=== PATIENT | female | born 1985 | race Caucasian/White ===

== ENCOUNTER 2018-01-28 14:48 | Emergency (ER) | payer OTHER ==
[2018-01-28] MEDS ORDERED: NS 0.9% 1000 ML* 2,000 ML IV ONE (15:06)
--- NOTE | 2018-01-28 16:05 | RAD ---
HISTORY: Vaginal bleeding in a female. The last menstrual period is unknown. COMPARISONS: None TECHNIQUE: Multiple transverse and longitudinal ultrasound images were obtained of the pelvis using grayscale, color flow, spectral and M-mode sonographic imaging. FINDINGS: UTERUS: The uterus is normal in shape, size, contour, and echotexture. GESTATION: There is a single live intrauterine gestation. The crown-rump length measures 5.2 cm yielding a gestational age of 12 weeks. cardiac motion is detected at a rate of 169 beats per minute. There is no identification of placental abruption. CUL-DE-SAC: There is no free fluid within the cul-de-sac. RIGHT OVARY: The right ovary measures 3.4 x 2.0 x 3.3 cm. LEFT OVARY: The left ovary measures 2.5 x 1.5 x 2.8 cm. IMPRESSION: Single live intrauterine gestation with a crown-rump length yielding a gestational age of 12 weeks.
[2018-01-28 16:39] LABS: Urine Appearance Clear; Urine Blood Negative (Negative); Urine Color Straw; Urine Ketones Negative (Negative); Urine Protein Negative (Negative); Urine Specific Gravity 1.004 (1.010-1.030); Urine Urobilinogen Negative (Negative)
[2018-01-28 16:57] LABS: ABS Basophils 0 10^3/ul (0-0.2); ABS Eosinophils 0 10^3/ul (0-0.6); ABS Lymphocytes 2.1 10^3/ul (1.0-4.8); ABS Monocytes 0.6 10^3/ul (0-0.8); ABS Neutrophils 8.1 10^3/ul (1.5-7.7); ABS Nucleated RBC 0 10^3/ul; Eosinophil % 0.4 % (0-6); Hematocrit 39 % (35-47); Hemoglobin 13.7 g/dl (12.0-16.0); Mean Corpuscular HGB Conc 35 g/dl (31-36); Mean Corpuscular Hemoglobin 31 pg (27-31); Mean Corpuscular Volume 88 fL (80-97); Mean Platelet Volume 9 um3 (7.4-10.4); Nucleated Red Blood Cells % 0; Platelet Count 295 10^3/ul (150-450); Red Blood Count 4.39 10^6/ul (4.0-5.4); Red Cell Distribution Width 13 % (10.5-15); White Blood Count 10.9 10^3/ul (3.5-10.8)
[2018-01-28 17:15] LABS: EGFR Non-African American 125.5 (>60)
[2018-01-28 18:58] VITALS: BP 111/68
--- NOTE | 2018-01-30 12:28 | ED ---
Ramez Castellanos Angela, scribed for Baudilio Daniels MD on 01/28/18 at 1507 . GI/ HPI - HPI Summary HPI Summary: This pt is a 32 y/o female, currently between 9 to 12 weeks , presenting to [facility] c/o dysuria since today. Pt reports she has had burning with urination today and states it feels "like pushing on needles." She additionally notes urinary urgency and nausea. Pt reports her urine was tinted red, she believes it's from the ureter. She denies abd cramping, vaginal discharge, vaginal bleeding. She reports she has frequent UTIs. Pt has an upcoming OBGyn ultrasound in 2 days. - History of Current Complaint Chief Complaint: EDUrogenitalProblems Time Seen by Provider: 01/28/18 14:58 Stated Complaint: POSSIABLE UTI Hx Obtained From: Patient Hx Last Menstrual Period: currently Onset/Duration: Started Hours Ago, Still Present Timing: Lasting Hours Current Severity: Severe Pain Intensity: 0 - no pain per pt Pain Characteristics: Burning - with urination Associated Signs and Symptoms: Positive: Nausea, Dysuria, Other: - urinary urgency. Negative: Vomiting Additional Signs & Symptoms: Negative: Vaginal Bleeding, Vaginal Discharge Aggravating Factor(s): Urination Alleviating Factor(s): Nothing - Allergy/Home Medications Allergies/Adverse Reactions: Allergies Allergy/AdvReac Type Severity Reaction Status Date / Time MS Penicillins [Penicillins] Allergy Severe Difficulty Verified 07/14/14 17:06 Breathing MS Latex [Latex] Allergy Mild Blisters Verified 07/14/14 17:06 PMH/Surg Hx/FS Hx/Imm Hx Endocrine/Hematology History: Reports: Hx Diabetes - GESTATIONAL DIABETES Denies: Hx Sickle Cell Disease Cardiovascular History: Denies: Other Cardiovascular Problems/Disorders Respiratory History: Reports: Hx Asthma GI History: Denies: Other GI Disorders History: Reports: Other Problems/Disorders - UTIs Musculoskeletal History: Denies: Hx Arthritis, Hx Tendonitis, Other Musculoskeletal History Sensory History: Reports: Hx Contacts or Glasses - GLASSES Denies: Hx Hearing Aid Opthamlomology History: Reports: Hx Contacts or Glasses - GLASSES Neurological History: Reports: Hx Migraine - IN PAST Psychiatric History: Reports: Hx Anxiety - WAS ON LEXAPRO BEFORE - Surgical History Surgery Procedure, Year, and Place: , 2006, [facility], [id number] Hx Anesthesia Reactions: No - PATIENT HAD SOME ONE SIDED PARLYSIS FOR SHORT TIME Infectious Disease History: No Infectious Disease History: Denies: Traveled Outside the [place] in Last 30 Days - Family History Known Family History: Positive: Hypertension - Social History Alcohol Use: None Substance Use Type: Reports: None Smoking Status (MU): Never Smoked Tobacco Have You Smoked in the Last Year: No Review of Systems Negative: Fever, Chills ENT: Negative Cardiovascular: Negative Respiratory: Negative Positive: Nausea. Negative: Abdominal Pain Positive: burning, dysuria, urgency. Negative: discharge Skin: Negative Neurological: Negative All Other Systems Reviewed And Are Negative: Yes Physical Exam - Summary Physical Exam Summary: VITAL SIGNS: Reviewed. GENERAL: Patient is a well-developed and nourished female who is lying comfortable in the stretcher. Patient is not in any acute respiratory distress. HEAD AND FACE: No signs of trauma. No ecchymosis, hematomas or skull depressions. No sinus tenderness. EYES: PERRLA, EOMI x 2, No injected conjunctiva, no nystagmus. EARS: Hearing grossly intact. Ear canals and tympanic membranes are within normal limits. MOUTH: Oropharynx within normal limits. NECK: Supple, trachea is midline, no adenopathy, no JVD, no carotid bruit, no c- spine tenderness, neck with full ROM. CHEST: Symmetric, no tenderness at palpation LUNGS: Clear to auscultation bilaterally. No wheezing or crackles. CVS: Regular rate and rhythm, S1 and S2 present, no murmurs or gallops appreciated. ABDOMEN: Soft, non-tender. No signs of distention. No rebound no guarding, and no masses palpated. Bowel sounds are normal. EXTREMITIES: FROM in all major joints, no edema, no cyanosis or clubbing. NEURO: Alert and oriented x 3. No acute neurological deficits. Speech is normal and follows commands. SKIN: Dry and warm Triage Information Reviewed: Yes Vital Signs On Initial Exam: Initial Vitals Temp Pulse Resp BP Pulse Ox 98.8 F 103 18 148/81 99 01/28/18 14:50 01/28/18 14:50 01/28/18 14:50 01/28/18 14:50 01/28/18 14:50 Vital Signs Reviewed: Yes Diagnostics - Vital Signs Vital Signs Temp Pulse Resp BP Pulse Ox 01/28/18 14:50 98.8 F 103 18 148/81 99 - Laboratory Result Diagrams: 01/28/18 15:30 01/28/18 15:30 Lab Statement: Any lab studies that have been ordered have been reviewed, and results considered in the medical decision making process. - Ultrasound No standard instances Ultrasound Interpretation: Positive (See Comments) - Transvaginal US IMPRESSION : Single live intrauterine gestation with a crown-rump length yielding a gestational age of [address] Daniels has reviewed this radiology report. Ultrasound Interpretation Completed By: Radiologist Re-Evaluation - Re-Evaluation First Eval Re-Evaluation Time: 17:42 Comment: I reviewed the lab results with the pt. GIGU Course/Dx - Course Assessment/Plan: This pt is a 32 y/o female, currently between 9 to 12 weeks , presenting to [facility] c/o dysuria since today. Pt reports she has had burning with urination today and states it feels "like pushing on needles." She additionally notes urinary urgency and nausea. Pt reports her urine was tinted red, she believes it's from the ureter. She denies abd cramping, vaginal discharge, vaginal bleeding. She reports she has frequent UTIs. Test results without any significant abnormalities except for WBC of 10.9, glucose of 111. Urinalysis is negative for UTI. Transvaginal ultrasound shows single live intrauterine gestation with a crown-rump length yielding a gestational age of 12 weeks. In the ED course the pt was given IV fluids, she declined any antiemetics. I discussed pt care with Dr. Marvin, Jacquard Fixer, who reports the pt can be discharged home and follow up with [facility]. Therefore pt will be discharged to home with follow up from Jacquard Fixer and PCP. She is instructed to return to the ED for any worsening or new symptoms. Pt is hemodynamically stable, alert and oriented x3. - Diagnoses Provider Diagnoses: Dysuria - Physician Notifications Discussed Care Of Patient With: Steve Marvin Time Discussed With Above Provider: 17:42 Instructed by Provider To: Other - I discussed pt care with Dr. Marvin, Jacquard Fixer, who reports the pt can be discharged and follow up with him in his office. Discharge - Discharge Plan Condition: Stable Disposition: HOME Patient Education Materials: Dysuria (ED) Referrals: Ramona Becker MD [Primary Care Provider] - Steve Marvin MD [Medical Doctor] - 2 Days (, 01/30/18.) Additional Instructions: Please follow up with Dr. Marvin, Jacquard Fixer, on , 01/30/18. RETURN TO THE ED FOR ANY WORSENING SYMPTOMS. The documentation as recorded by the Ramez garcia Angela accurately reflects the service I personally performed and the decisions made by , Baudilio Daniels MD.
== END 2018-01-28 18:58 | disposition home or self-care (01) ==
LOC: ED 14:48
DX: R30.0 Dysuria (principal); R11.10 Vomiting, unspecified
CPT/HCPCS: 36415; 76817; 80053; 81003; 83605; 84702; 85025; 86850; 86900; 86901; 87086; 99283

== ENCOUNTER 2018-08-06 05:59 | Inpatient (IN) | payer OTHER ==
[2018-08-06] MEDS ORDERED: Sodium Citrate/Citric Acid* 15 ML UDC ONE (07:40)
[2018-08-06] MEDS ORDERED: Bupivacaine-MPF SPINAL* 7.5 MG/ML - 2ML AMP ONE (07:47)
[2018-08-06] MEDS ORDERED: Morphine PF AMP (0.5MG/ML)* 5 MG/10 ML AMP ONE (07:47)
[2018-08-06] MEDS ORDERED: Lidocaine 1%* 5 ML VIAL ONE (07:50)
[2018-08-06] MEDS ORDERED: Sodium Chloride 0.9%* 10 ML ONE (07:51)
[2018-08-06] MEDS ORDERED: ceFOXitin 2 GM IVPREMIX* 2 GM/50 ML BAG IVPB ONE (08:00)
[2018-08-06] MEDS ORDERED: Phenylephrine INJ* 10 MG/ML 1 ML VIAL (10 MG) ONE (08:07)
[2018-08-06] MEDS ORDERED: Naloxone* 0.4 MG/ML 1 ML VIAL IV PRN ×2 (08:43→08:47)
[2018-08-06] MEDS ORDERED: Ondansetron INJ* 2 MG/ML VIAL IV PRN ×2 (08:43→08:47)
[2018-08-06] MEDS ORDERED: fentaNYL* 50 MCG/ML 2 ML VIAL (100 MCG VIAL) IV PRN (08:43)
[2018-08-06] MEDS ORDERED: Ketorolac INJ* 30 MG/ML 1 ML VIAL ONE (08:44)
[2018-08-06] MEDS ORDERED: oxyCODONE/Acetamin 5/325 MG* TAB PO PRN (08:47)
[2018-08-06] MEDS ORDERED: diPHENhydraMINE IV* 50 MG/ML 1 ml VIAL (BENADRYL) IV PRN (08:47)
[2018-08-06] MEDS ORDERED: Nalbuphine* 10 MG/ML 1 ML VIAL IV PRN (08:47)
[2018-08-06] MEDS ORDERED: Scopolamine 1.5 mg* PATCH TRANSDERM PRN (08:47)
[2018-08-06] MEDS ORDERED: DiMENhydriNATE IV* 50 MG/ML VIAL IV PUSH PRN (08:47)
[2018-08-06] MEDS ORDERED: Acetaminophen TAB* 325 MG PO PRN (09:05)
[2018-08-06] MEDS ORDERED: Oxytocin in LR* 20 UNITS/1,000 ML BAG IVPB ONE (09:05)
[2018-08-06] MEDS ORDERED: Witch Hazel PAD* JAR TOPICAL PRN (09:05)
[2018-08-06] MEDS ORDERED: Glycerin ADULT SUPP PR PRN (09:05)
[2018-08-06] MEDS ORDERED: Dibucaine 1% 28.35 GM TUBE PR PRN (09:05)
[2018-08-06] MEDS ORDERED: Ibuprofen TAB* 600 MG PO PRN (09:05)
[2018-08-06] MEDS ORDERED: Zolpidem TAB* 5 MG PO PRN (09:05)
[2018-08-06] MEDS ORDERED: Oxytocin in LR* 20 UNITS/1,000 ML BAG IVPB SCH (10:00)
[2018-08-06] MEDS: Simethicone TAB* 80 MG TAB.CHEW PO SCH ×3 (14:15→21:02)
[2018-08-06] MEDS: Docusate CAP* 100 MG PO SCH ×2 (14:16→21:02)
[2018-08-06] MEDS: Ketorolac INJ* 30 MG/ML 1 ML VIAL IV PRN ×2 (15:14→21:01)
--- NOTE | 2018-08-06 22:50 | OP ---
DATE OF OPERATION: 08/06/18 - ROOM #116 DATE OF : 85 SURGEON: Alan Aguilar MD UX LEAD: Dick Howell CNM ANESTHESIA: Spinal. PRE-OP DIAGNOSIS: Previous section, desires sterilization. POST-OP DIAGNOSIS: Previous section, desires sterilization. OPERATIVE PROCEDURE: Low transverse section and bilateral tubal ligation. ESTIMATED BLOOD LOSS: 600 cc. SPECIMENS: Include fallopian tubes. FINDINGS: Include a viable male, Apgars 9 and 9, weight was 9 pounds 3 ounces. Normal-appearing uterus, fallopian tubes, and ovaries. DESCRIPTION OF PROCEDURE: The patient identified and procedure identified as a low transverse section. The patient was taken to the operating room and prepped and draped in the usual fashion in the left lateral recumbent position under spinal anesthesia. A Pfannenstiel incision was made through the old incision and carried down through fat, fascia, and peritoneum. A bladder flap was created via sharp dissection. A transverse incision was made in the lower uterine segment and extended laterally using blunt dissection. The above infant was delivered through the incision with ease. The cord was doubly clamped and cut, and the infant was handed to the awaiting driver medic. Cord blood was obtained. Placenta delivered spontaneously. The uterus was wiped out with a wet lap sponge. The uterine incision was then closed using 0 Polysorb in a running fashion. A second layer was used to imbricate the first layer. The right fallopian tube was grasped at the fimbriated ends. Tanya was placed across it. It was ligated x2 and the fimbriae was excised on the right. Same procedure was carried on the left after following it out to its fimbriated ends. The uterus was placed back in the abdominal cavity. Good hemostasis was verified in all operative sites including the fallopian tubes. Copious irrigation was utilized and suctioned down. The peritoneum was then closed using 3-0 Polysorb in a running fashion. Subrectus layers were inspected , found to be hemostatic. The fascia was then closed using 0 Polysorb in a running fashion. Hemostasis achieved in the subcu. Copious irrigation was utilized and suctioned out. The subcu were lysed using a Bovie and the skin was closed with 4-0 Monocryl in a subcuticular fashion. Steri-Strips were applied and the patient returned to the recovery room in a stable condition. All sponge and instrument counts were correct. [id number]/[facility] #: [id number] [facility] SHORELawrence
[2018-08-07] MEDS ORDERED: oxyCODONE/Acetamin 5/325 MG* TAB PO PRN ×2
[2018-08-07] MEDS: Ketorolac INJ* 30 MG/ML 1 ML VIAL IV PRN (04:43)
[2018-08-07 06:37] LABS: ABS Basophils 0.1 10^3/ul (0-0.2); ABS Eosinophils 0.1 10^3/ul (0-0.6); ABS Lymphocytes 1.7 10^3/ul (1.0-4.8); ABS Monocytes 0.7 10^3/ul (0-0.8); ABS Neutrophils 9.4 10^3/ul (1.5-7.7); ABS Nucleated RBC 0 10^3/ul; Eosinophil % 0.5 % (0-6); Hematocrit 34 % (35-47); Hemoglobin 11.6 g/dl (12.0-16.0); Mean Corpuscular HGB Conc 35 g/dl (31-36); Mean Corpuscular Hemoglobin 31 pg (27-31); Mean Corpuscular Volume 90 fL (80-97); Mean Platelet Volume 9.7 um3 (7.4-10.4); Nucleated Red Blood Cells % 0.1; Platelet Count 168 10^3/ul (150-450); Red Blood Count 3.73 10^6/ul (4.00-5.40); Red Cell Distribution Width 14 % (10.5-15); White Blood Count 11.9 10^3/ul (3.5-10.8)
[2018-08-07] MEDS: Simethicone TAB* 80 MG TAB.CHEW PO SCH ×4 (08:31→21:44)
[2018-08-07] MEDS: Docusate CAP* 100 MG PO SCH ×3 (08:31→21:44)
[2018-08-07] MEDS: Ibuprofen TAB* 600 MG PO SCH ×3 (10:46→23:46)
[2018-08-07] MEDS: Ferrous Gluconate TAB* 324 MG TAB PO SCH ×2 (10:47→23:28)
[2018-08-08] MEDS: Ibuprofen TAB* 600 MG PO SCH (07:11)
[2018-08-08 07:38] VITALS: BP 142/88
[2018-08-08] MEDS ORDERED: Measles, Mumps,Rubella VACC* 0.5 ML/VIAL SUBCUT ONE (07:57)
[2018-08-08] MEDS: Simethicone TAB* 80 MG TAB.CHEW PO SCH (08:55)
[2018-08-08] MEDS: Docusate CAP* 100 MG PO SCH (08:56)
[2018-08-08] MEDS: Ferrous Gluconate TAB* 324 MG TAB PO SCH (10:20)
[2018-08-09] MEDS ORDERED: Scopolamine PATCH Remove* 1 NOTE MISC PATCH OFF PRN (08:48)
== END 2018-08-08 11:41 | disposition home or self-care (01) | DRG 540 ==
LOC: MCHOB 05:59
PROVIDERS: ADMIT Obstetrics & Gynecology; ATTEND Obstetrics & Gynecology
PROC: 4A1HXCZ Monitoring of Products of Conception, Cardiac Rate, External Approach (ICD-10-PCS; 2018-08-06)
PROC: 0UT70ZZ Resection of Bilateral Fallopian Tubes, Open Approach (ICD-10-PCS; 2018-08-06)
PROC: 10D00Z1 Extraction of Products of Conception, Low, Open Approach (ICD-10-PCS; principal; 2018-08-06 07:45)
DX: O34.211 Maternal care for low transverse scar from previous cesarean delivery (principal); Z30.2 Encounter for sterilization; Z3A.39 39 weeks gestation of pregnancy; Z37.0 Single live birth; Z88.0 Allergy status to penicillin; Z91.040 Latex allergy status; Z91.048 Other nonmedicinal substance allergy status; Z87.440 Personal history of urinary (tract) infections; Z82.49 Family history of ischemic heart disease and other diseases of the circulatory system; Z81.8 Family history of other mental and behavioral disorders; Z83.3 Family history of diabetes mellitus; Z82.3 Family history of stroke; Z81.1 Family history of alcohol abuse and dependence; Z87.891 Personal history of nicotine dependence; Z23 Encounter for immunization
CPT/HCPCS: 36415; 85025; 88302; 90686; 90707; A9270-GY; J0694; J1200; J1885

== ENCOUNTER 2019-02-16 18:10 | Emergency (ER) | payer OTHER ==
[2019-02-16 20:06] VITALS: BP 134/95
--- NOTE | 2019-02-16 20:46 | UC ---
Throat Pain/Nasal Sae HPI - HPI Summary HPI Summary: 33-year-old woman comes in with one week of upper respiratory tract infection symptoms. She's had yellow rhinorrhea and sinus pressure. No shortness of breath. She feels fatigued. The rest her family is also sick. - History of Current Complaint Chief Complaint: UCGeneralIllness Stated Complaint: FEVER,NAUSEA,CONGESTION Time Seen by Provider: 02/16/19 19:38 Hx Last Menstrual Period: 02/09/19 Pain Intensity: 5 - Allergies/Home Medications Allergies/Adverse Reactions: Allergies Allergy/AdvReac Type Severity Reaction Status Date / Time Penicillins Allergy Severe Difficulty Verified 02/16/19 19:52 Breathing latex Allergy Mild Rash Verified 02/16/19 19:52 adhesive Allergy Hives Verified 02/16/19 19:52 amoxicillin Allergy Hives Verified 02/16/19 19:52 Home Medications: Home Medications Ascorbic Acid [Vitamin C] 500 mg PO DAILY 02/16/19 [History Confirmed 02/16/19] Pnv,Calcium 72/Iron,Carb/Folic [ Plus Iron 29-1 mg] 2 tab PO DAILY 02/16 [History Confirmed 02/16/19] PMH/Surg Hx/FS Hx/Imm Hx Previously Healthy: Yes - Surgical History Surgical History: Yes Surgery Procedure, Year, and Place: , 2006, [facility] [place], [id number], c- section 2018 - Family History Known Family History: Positive: Hypertension - Social History Alcohol Use: None Substance Use Type: None Smoking Status (MU): Former Smoker Have You Smoked in the Last Year: No When Did the Patient Quit Smoking/Using Tobacco: 2006 - Immunization History Most Recent Influenza Vaccination: 08/07/18 Most Recent Tetanus Shot: 06/01/14 Most Recent Pneumonia Vaccination: none Review of Systems All Other Systems Reviewed And Are Negative: Yes Constitutional: Positive: Fever, Fatigue Skin: Positive: Negative Eyes: Positive: Negative ENT: Positive: Nasal Discharge, Sinus Congestion, Sinus Pain/Tenderness Respiratory: Positive: Negative Cardiovascular: Positive: Negative Gastrointestinal: Positive: Negative Motor: Positive: Negative Neurovascular: Positive: Negative Musculoskeletal: Positive: Negative Neurological: Positive: Negative Psychological: Positive: Negative Is Patient Immunocompromised?: No Physical Exam Triage Information Reviewed: Yes Appearance: No Pain Distress, Well-Nourished, Ill-Appearing - MILD Vital Signs: Initial Vital Signs Temp 99.2 F 02/16/19 19:54 Pulse 106 02/16/19 19:54 Resp 16 02/16/19 19:54 BP 134/95 02/16/19 19:54 Pulse Ox 100 02/16/19 19:54 Vital Signs Reviewed: Yes Eye Exam: Normal Eyes: Positive: Conjunctiva Clear ENT: Positive: Pharyngeal erythema, Nasal congestion, Nasal drainage, TMs normal Neck exam: Normal Neck: Positive: Supple Respiratory: Positive: Lungs clear, Normal breath sounds, No respiratory distress Cardiovascular: Positive: RRR Musculoskeletal Exam: Normal Musculoskeletal: Positive: Strength Intact, ROM Intact Neurological Exam: Normal Neurological: Positive: Alert, Muscle Tone Normal Psychological Exam: Normal Psychological: Positive: Normal Response To Family, Age Appropriate Behavior Skin Exam: Normal Throat Pain/Nasal Course/Dx - Course Course Of Treatment: DISCUSSED VIRAL VERSES BACTERIAL INFECTION AND THE ROLE OF ANTIBIOTICS. THE PATIENT WISHES TO BE ON ANTIBIOTICS AT THIS TIME. we discussed the positive influenza. She's been sick for 7 days. Therefore symptomatic treatment for influenza. With the sinus pressure and green rhinorrhea she has a secondary infection. - Differential Dx/Diagnosis Provider Diagnosis: Sinusitis, Influenza Discharge - Sign-Out/Discharge Documenting (check all that apply): Patient Departure All imaging exams completed and their final reports reviewed: No Studies - Discharge Plan Condition: Stable Disposition: HOME Prescriptions: Cephalexin CAP* [Keflex CAP*] 500 mg PO TID #28 cap Patient Education Materials: Sinusitis (ED), Influenza (ED) Referrals: Ramona Becker MD [Primary Care Provider] - Additional Instructions: FOLLOW UP WITH YOUR DOCTOR IF NOT COMPLETELY IMPROVED. GET REEVALUATED SOONER FOR ANY WORSENING OF YOUR CONDITION OR ANY QUESTIONS OR CONCERNS. - Billing Disposition and Condition Condition: STABLE Disposition: Home
[2019-02-16 20:56] LABS: Influenza A Molecular POSITIVE (Negative)
[2019-02-16] MEDS ORDERED: Cephalexin CAP* 500 MG PO ONE ×2 (21:20→21:21)
== END 2019-02-16 21:36 | disposition home or self-care (01) ==
LOC: UCCORT 18:10
DX: J32.9 Chronic sinusitis, unspecified (principal); J11.1 Influenza due to unidentified influenza virus with other respiratory manifestations; Z88.0 Allergy status to penicillin; Z91.040 Latex allergy status; Z91.09 Other allergy status, other than to drugs and biological substances; Z87.891 Personal history of nicotine dependence
CPT/HCPCS: 99212; A9270-GY; G0463